=== PATIENT | female | born 1970 | race Caucasian/White ===

== ENCOUNTER 2019-02-14 08:53 | Emergency (ER) | payer OTHER ==
[~2019-02-14] VITALS: Ht 162.6 cm; Wt 71.7 kg
[2019-02-14] MEDS ORDERED: DIAZEPAM 5 MG TAB PO STA (09:12)
[2019-02-14] MEDS ORDERED: KETOROLAC TROMETHAMINE 60 MG/2 ML VIAL IM ONE (09:15)
[2019-02-14] MEDS ORDERED: HYDROCODONE/APAP 5MG-325MG TAB PO ONE (09:15)
--- NOTE | 2019-02-14 10:41 | Diagnostic Imaging Report ---
EXAMINATION: THORACIC SP 3V INDICATION: Back pain COMPARISON: None FINDINGS: 3 views of the thoracic spine demonstrate no compression fracture. Vertebral body alignment is normal. Minimal multilevel degenerative changes with small osteophyte formation. The visualized portions of the lungs are clear. Normal bowel gas pattern in the visualized abdomen. No free air. IMPRESSION: No acute osseous injury. Minimal degenerative changes. Signed by: Claudio Pollard MD on 02/14/2019 10:37 AM
--- NOTE | 2019-02-14 11:15 | NUR ---
rec'd pt in walking rounds with karlos melo for continuity of care
[2019-02-14 11:24] VITALS: BP 108/71
== END 2019-02-14 11:37 | disposition home or self-care (01) ==
LOC: ER 08:53
DX: S29.012A Strain of muscle and tendon of back wall of thorax, initial encounter (principal)
CPT/HCPCS: 72072; 99284; J1885

== ENCOUNTER 2019-05-23 15:33 | Emergency (ER) | payer OTHER ==
[~2019-05-23] VITALS: Ht 162.6 cm; Wt 70.3 kg
--- OUTSIDE RECORDS SUMMARY | 2019-05-23 15:36 | XMS REPORT ---
Author [facility] Address Unknown Phone Unavailable Care Team Providers Care Master [employer] Name Role Phone Elier ESCOBAR Unavailable Unavailable Problems This patient has no known problems. Allergies, Adverse Reactions, Alerts This patient has no known allergies or adverse reactions. Medications This patient has no known medications. Results Test Description Test Time Test Comments Text Results Atomic Results Result Comments THORACIC SP 3V 2019-02-14 10:36:00 [place] [id number] Patient Name: SANJANA CHARLES MR #: [id number] : 1970 Age/Sex: 49/F Req #: [id number] Adm Physician: Ordered by: JORGE ESCOBAR MD Report #: [id number] Location: ER Room/Bed: Procedure: [id number] DX/THORACIC SP 3V Exam Date: 02/14/19 Exam Time: 0945 REPORT STATUS: Signed EXAMINATION: THORACIC SP 3V INDICATION: Back pain COMPARISON: None FINDINGS: 3 views of the thoracic spine demonstrate no compression fracture. Vertebral body alignment is normal. Minimal multilevel degenerative changes with small osteophyte formation. The visualized portions of the lungs are clear. Normal bowel gas pattern in the visualized abdomen. No free air. IMPRESSION: No acute osseous injury. Minimal degenerative changes. Signed by: Deena Wang MD on 02/14/2019 10:37 AM Dictated By: DEENA WANG MD [id number] Transcribed By: EDITA on 02/14/19 1037 COPY TO: JORGE ESCOBAR MD
[2019-05-23] MEDS ORDERED: KETOROLAC TROMETHAMINE 60 MG/2 ML VIAL IM ONE (16:00)
[2019-05-23] MEDS ORDERED: KETOROLAC TROMETHAMINE 60 MG/2 ML VIAL ONE (16:31)
--- NOTE | 2019-05-23 16:41 | Diagnostic Imaging Report ---
Wrist limited left CPT code: 94351 Indication: Trauma Technique: Two views of the left wrist obtained without comparison. Findings: The visualized portions of the distal radius and ulna are intact. No destructive lesions of bone. The proximal and distal rows of carpal bones appear intact. Visualized metacarpal bones appear intact. IMPRESSION: No evidence of displaced fracture or dislocation involving the left wrist. Signed by: Dr. Samantha Escobedo MD on 05/23/2019 4:38 PM
--- NOTE | 2019-05-23 16:41 | Diagnostic Imaging Report ---
Examination: CT head without contrast Clinical Indication: Fall with head injury. Technique: Transaxial noncontrast images from the skull base through the vertex were obtained. Sagittal and coronal reformatted images were done. Dose modulation, iterative reconstruction, and/or weight based adjustment of the mA/kV was utilized to reduce the radiation dose to as low as reasonably achievable. Comparison: None. Findings: Scalp: Left frontal scalp and periorbital hematoma. Bones: Intact. No fractures. No blastic or lytic lesions. Brain sulci: Appropriate for patient's age. Ventricles: Normal in size and configuration. No hydrocephalus. Extra-axial space: No abnormalities. Parenchyma: No abnormal densities. No masses, hemorrhage, or acute or chronic cortical based vascular insults. Suprasellar region: No abnormalities. Craniocervical junction: The foramen magnum is patent. No Chiari one malformation. Impression: Left frontal scalp and periorbital hematoma. No associated calvarial fracture No acute intracranial abnormality. Signed by: Dr. Lu Schroeder M.D. on 05/23/2019 4:37 PM
--- NOTE | 2019-05-23 16:51 | Diagnostic Imaging Report ---
Examination: CT Face without Contrast History:Fall with left eye injury. Comparison studies: None Technique: Axial images were obtained through the maxillofacial region. Coronal and sagittal reconstructions obtained from the axial data. Dose modulation, iterative reconstruction, and/or weight based adjustment of the mA/kV was utilized to reduce the radiation dose to as low as reasonably achievable. Intravenous contrast: None Findings: Soft tissues: No abnormalities. Bones: No fractures or bony abnormalities. Orbits: Globes: Intact Extra or intraconal abnormalities: None. Paranasal sinuses: Mild inflammatory mucosal thickening of the right maxillary sinus. IMPRESSION: 1. Left periorbital/preseptal soft tissue hematoma. 2. No acute fracture. Signed by: Dr. Lu Schroeder M.D. on 05/23/2019 4:47 PM
--- NOTE | 2019-05-23 16:52 | Diagnostic Imaging Report ---
Shoulder complete CPT code: 28140 Indication: Fall. Technique: Internal, external and Y-view of left shoulder obtained. Comparison: None. Findings: There is no current dislocation. No evidence of fracture involving humeral head. Visualized proximal shaft is intact. The clavicle is intact. The clavicle and acromion are properly aligned. No fracture evident involving the visualized portion of the scapula. Visualized chest is unremarkable. No radiopaque foreign body in the soft tissues. IMPRESSION: No evidence of acute fracture or dislocation involving the shoulder. Signed by: Dr. Samantha Escobedo MD on 05/23/2019 4:49 PM
[2019-05-23 18:38] VITALS: BP 169/97
== END 2019-05-23 18:38 | disposition home or self-care (01) ==
LOC: FSED 15:33
DX: S00.83XA Contusion of other part of head, initial encounter (principal); S40.012A Contusion of left shoulder, initial encounter; S60.212A Contusion of left wrist, initial encounter; S70.12XA Contusion of left thigh, initial encounter; W01.0XXA Fall on same level from slipping, tripping and stumbling without subsequent striking against object, initial encounter; Y93.89 Activity, other specified; Y92.410 Unspecified street and highway as the place of occurrence of the external cause
CPT/HCPCS: 70450; 70486; 73030; 73100; 96372; 99283; J1885